=== PATIENT | male | born 1955 | race Caucasian/White ===

== ENCOUNTER 2017-10-02 12:20 | Emergency (ER) | payer OTHER ==
[~2017-10-02] VITALS: Ht 182.9 cm; Wt 122.5 kg
[2017-10-02] MEDS ORDERED: CARISOPRODOL 3350 MG PO (12:40)
[2017-10-02] MEDS ORDERED: DIAZEPAM 5 MG5 M1 PO (12:40)
[2017-10-02] MEDS ORDERED: HYDROCHLOROTHIA25 M2 PO (12:52)
[2017-10-02] MEDS ORDERED: NORCO 5-325 TA1 EACH PO (12:52)
[2017-10-02 13:06] LABS: ABSOLUTE BASOPHILS 0.1 thou/uL (0.0-0.2); ABSOLUTE EOSINOPHILS 0.1 thou/uL (0.0-0.7); ABSOLUTE LYMPHOCYTES 2.1 thou/uL (0.8-5.3); ABSOLUTE MONOCYTES 0.5 thou/uL (0.0-1.2); ABSOLUTE NEUTROPHILS 4.3 thou/uL (1.6-8.1); EOSINOPHILS 1.1 %; HEMOGLOBIN 15.7 gm/dL (14.0-18.0); LYMPHOCYTES 29.3 %; MCH 31.5 pg (26.0-34.0); MCHC 34.9 g/dL (28.0-37.0); MCV 90.3 fL (80.0-100.0); MONOCYTES 7.5 %; MPV 7.5 fl. (7.2-11.1); NUCLEATED RBCS 0 /100WBC; PLATELET COUNT* 220 thou/uL (150-400); POLYS 61.1 %; RBC 4.99 mil/uL (4.50-6.00); RDW-CV 13.6 % (10.5-14.5); WBC 7.1 thou/uL (4.0-11.0)
[2017-10-02 13:13] LABS: ANION GAP 11 mmol/L (7-16); BUN 11 mg/dL (7-18); CALCIUM 8.8 mg/dL (8.5-10.1); CHLORIDE 104 mmol/L (98-107); CO2 24 mmol/L (21-32); CREATININE 0.7 mg/dL (0.6-1.3); GLUCOSE 99 mg/dL (70-99); POTASSIUM 3.8 mmol/L (3.5-5.1); SODIUM 139 mmol/L (136-145)
[2017-10-02 13:21] LABS: ALBUMIN 4.2 g/dL (3.4-5.0); ALKALINE PHOSPHATASE 73 U/L (46-116); SGOT 20 U/L (15-37); SGPT 34 U/L (30-65); TOTAL BILIRUBIN 0.5 mg/dL (<0.1-1.0); TOTAL PROTEIN 7.6 g/dL (6.4-8.2); TROPONIN-I LEVEL <0.06 ng/mL (<0.06)
[2017-10-02 13:23] LABS: URINE BILIRUBIN NEGATIVE (Negative); URINE BLOOD 1+ (Negative); URINE CLARITY CLEAR; URINE COLOR YELLOW; URINE GLUCOSE-RANDOM NEGATIVE (Negative); URINE KETONES NEGATIVE (Negative); URINE LEUKOCYTES-REFLEX NEGATIVE (Negative); URINE NITRITE-REFLEX NEGATIVE (Negative); URINE PROTEIN NEGATIVE (Negative); URINE SPECIFIC GRAVITY <= 1.005 (1.005-1.030); URINE UROBILINOGEN 0.2 E.U./dl (0.2-1.0)
[2017-10-02 13:35] LABS: CASTS None Seen /LPF (None Seen); CRYSTALS None Seen /LPF (None Seen); SQUAMOUS 0-3 Few /LPF (0-3); URINE RBC 0-2 Rare /HPF (0-2)
[2017-10-02 13:36] LABS: BACTERIA-REFLEX None Seen /HPF (None Seen); URINE WBC-REFLEX 0-5 Rare /HPF (0-5)
[2017-10-02 13:50] VITALS: BP 169/90
--- NOTE | 2017-10-03 18:41 | EKG ---
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 : 1955 Requested By: Martine Parada Order Number: [id number] MD: Mickey Bridges Measurements Intervals [place] Rate: 77 P: 65 CT: 169 QRS: -26 QRSD: 111 T: 23 QT: 369 QTc: 418 Interpretive Statements Sinus rhythm Borderline left axis deviation RSR' in V1 or V2, probably normal variant No previous ECG available for comparison Electronically Signed On 10-03-2017 18:40:49 CDT by Mickey Bridges [email or web address] <ELECTRONICALLY SIGNED> By: Mickey Bridges MD, [facility] 10/03/17 1840 1233 1233 Mickey Bridges MD, FACC /EPI
== END 2017-10-02 13:50 | disposition home or self-care (01) ==
LOC: M.ERS 12:20
PROVIDERS: Emergency Medicine Emergency Medical Services
DX: F41.9 Anxiety disorder, unspecified (principal); Z88.5 Allergy status to narcotic agent; Z90.49 Acquired absence of other specified parts of digestive tract

== ENCOUNTER 2017-11-26 05:28 | Inpatient (IN) | payer OTHER ==
[2017-11-26] VITALS (18 sets, daily range): BP systolic 95–159; BP diastolic 4–104
[~2017-11-26] VITALS: Ht 182.9 cm; Wt 129.3 kg
[~2017-11-26 05:28] MED LIST: CARISOPRODOL 3350 MG PO; DIAZEPAM 5 MG5 M1 PO; HYDROCHLOROTHIA25 M2 PO; NORCO 5-325 TA1 EACH PO
--- NOTE | 2017-11-26 05:38 | NUR ---
SEE STEMI DOCUMENTATION FORM
[2017-11-26 05:54] LABS: ABSOLUTE BASOPHILS 0.1 thou/uL (0.0-0.2); ABSOLUTE EOSINOPHILS 0.1 thou/uL (0.0-0.7); ABSOLUTE LYMPHOCYTES 3.3 thou/uL (0.8-5.3); ABSOLUTE MONOCYTES 0.9 thou/uL (0.0-1.2); ABSOLUTE NEUTROPHILS 5.8 thou/uL (1.6-8.1); EOSINOPHILS 0.9 %; HEMATOCRIT 49.6 % (42.0-52.0); HEMOGLOBIN 17.1 gm/dL (14.0-18.0); LYMPHOCYTES 32.2 %; MCH 31.2 pg (26.0-34.0); MCHC 34.5 g/dL (28.0-37.0); MCV 90.5 fL (80.0-100.0); MONOCYTES 8.9 %; MPV 7.6 fl. (7.2-11.1); NUCLEATED RBCS 0 /100WBC; PLATELET COUNT* 285 thou/uL (150-400); RBC 5.48 mil/uL (4.50-6.00); RDW-CV 13.2 % (10.5-14.5); WBC 10.1 thou/uL (4.0-11.0)
[2017-11-26 06:01] LABS: ANION GAP 11 mmol/L (7-16); BUN 14 mg/dL (7-18); CALCIUM 9.4 mg/dL (8.5-10.1); CHLORIDE 102 mmol/L (98-107); CO2 26 mmol/L (21-32); CREATININE 0.9 mg/dL (0.6-1.3); GLUCOSE 138 mg/dL (70-99); POTASSIUM 3.7 mmol/L (3.5-5.1); SODIUM 139 mmol/L (136-145)
[2017-11-26 06:03] LABS: APTT 26.8 Seconds (25.0-31.3)
[2017-11-26 06:07] LABS: ALBUMIN 4.4 g/dL (3.4-5.0); ALKALINE PHOSPHATASE 77 U/L (46-116); SGOT 21 U/L (15-37); SGPT 26 U/L (30-65); TOTAL BILIRUBIN 0.3 mg/dL (<0.1-1.0); TOTAL PROTEIN 7.8 g/dL (6.4-8.2)
[2017-11-26 06:10] LABS: TROPONIN-I LEVEL 1.21 ng/mL (<0.06)
[2017-11-26 06:22] LABS: CHOLESTEROL 280 mg/dL (<200); HDL CHOLESTEROL 34 mg/dL (>40); SERUM ASSESSMENT Clear; TC:HDL 8.2 Ratio (Not establshd); TRIGLYCERIDE 451 mg/dL (<150); VLDL 90 mg/dL (<40)
--- NOTE | 2017-11-26 09:17 | NUR ---
0750 ADMITTED TO ICU PER BED FROM REGISTERED NURSE AMBULATORY. SEE ADMISSION ASSESSMENT AND POST CATH CHARTING. RIGHT GROIN ANGIOSEAL INTACT. ATRIAL FIB ON MONITOR. EKG ORDERED. CARDIZEM GTT AT 15 MG/HR
[2017-11-26 10:33] LABS: CK-MB MASS 134.5 ng/mL (<0.5-3.6)
[2017-11-26 10:38] LABS: TROPONIN-I LEVEL 11.15 ng/mL (<0.06)
--- NOTE | 2017-11-26 11:20 | NUR ---
DR MCCLAIN TO SEE PATIENT.
--- NOTE | 2017-11-26 12:24 | NUR ---
1200 PATIENT NOW OFF OF BEDREST. HOB UP AND LUNCH ORDERED
--- NOTE | 2017-11-26 13:37 | EKG ---
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 : 1955 Requested By: Dalton Hernadez Order Number: [id number] MD: Home Choudhury Measurements Intervals [place] Rate: 163 P: 265 CT: 81 QRS: 19 QRSD: 88 T: 85 QT: 272 QTc: 448 Interpretive Statements atrial fibrillation Inferior infarct, acute (RCA) Lateral leads are also involved Probable RV involvement, suggest recording right precordial leads Compared to ECG 10/02/2017 12:33:40 Myocardial infarct finding now present Sinus rhythm no longer present Electronically Signed On 11-26-2017 13:37:28 CDT by Home Choudhury [email or web address] <ELECTRONICALLY SIGNED> By: Home Choudhury MD, [facility] 11/26/17 1337 0530 0530 Home Choudhury MD, [facility] /EPI
--- NOTE | 2017-11-26 13:38 | EKG ---
[place] [address] ELECTROCARDIOGRAM REPORT Name: BALWINDER RAY Room: [address] ADM IN .R.#: [id number] Admission: 11/26/17 Attend Phys: Home Choudhury MD, F Discharge: Date of : 55 Report #: [id number] THIS REPORT FOR: //name// 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 : 1955 Requested By: Dalton Hernadez Order Number: [id number] MD: Home Choudhury Measurements Intervals [place] Rate: 117 P: PA: QRS: 13 QRSD: 93 T: 62 QT: 311 QTc: 434 Interpretive Statements Atrial fibrillation Inferoposterior infarct, acute (RCA) Lateral infarct, acute Probable RV involvement, suggest recording right precordial leads Electronically Signed On 11-26-2017 13:38:14 CDT by Home Choudhury [email or web address] <ELECTRONICALLY SIGNED> By: Home Choudhury MD, [facility] 11/26/17 1338 0 0 Home Choudhury MD, [facility] /EPI
--- NOTE | 2017-11-26 13:40 | EKG ---
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
--- NOTE | 2017-11-26 16:21 | NUR ---
1500 CONVERTED TO SINUS RL WITH [facility] PAC. CARDIZEM DRIP OFF. SEE EKG. PAGE TO DR MCCLAIN
--- NOTE | 2017-11-26 16:28 | NUR ---
1530 LUCIANO CATHETER REMOVED.
--- NOTE | 2017-11-26 17:46 | NUR ---
PATIENT PROGRESSING TOWARDS GOALS. TO ICU POST CATH FOR PCI. SEE GROIN SITE CHARTING. OFF OF BEDREST AT NOON. NOW UP IN CHAIR. LUCIANO CATHETER REMOVED. CONVERTED FROM A FIB TO SINUS RL AT 1500. DENIES CHEST PAIN. SOA RESOLVED. MULTIPLE VISITORS
[2017-11-27] VITALS (16 sets, daily range): BP systolic 89–149; BP diastolic 30–84
[2017-11-27 04:49] LABS: HEMATOCRIT 38.8 % (42.0-52.0); MCHC 35.1 g/dL (28.0-37.0); MCV 91.1 fL (80.0-100.0); MPV 8.2 fl. (7.2-11.1); RBC 4.26 mil/uL (4.50-6.00); RDW-CV 13.3 % (10.5-14.5); WBC 10.4 thou/uL (4.0-11.0)
[2017-11-27 05:22] LABS: ALBUMIN 3.5 g/dL (3.4-5.0); CALCIUM 8.2 mg/dL (8.5-10.1); CK-MB MASS 225.2 ng/mL (<0.5-3.6); CREATININE 0.9 mg/dL (0.6-1.3); HEMOGLOBIN 13.6 gm/dL (14.0-18.0); POTASSIUM 3.4 mmol/L (3.5-5.1); TOTAL BILIRUBIN 0.8 mg/dL (<0.1-1.0); TOTAL PROTEIN 6.2 g/dL (6.4-8.2)
[2017-11-27 05:54] LABS: TROPONIN-I LEVEL 33.81 ng/mL (<0.06)
--- NOTE | 2017-11-27 07:39 | NUR ---
THIS RN RESUMED CARE OF PT THIS AM. PT VSS. EKG THIS AM NSR. DENIES PAIN. GOALS FOR TODAY INCLUDE DOWNGRADING TO MEDICAL, INCREASING ACTIVITY LEVEL.
[2017-11-27 10:15] LABS: CK-MB MASS 172.1 ng/mL (<0.5-3.6)
[2017-11-27 10:40] LABS: TROPONIN-I LEVEL 24.29 ng/mL (<0.06)
--- NOTE | 2017-11-27 11:38 | NUR ---
PT moving towards goals, downgraded to telemetry. Pt tx to 200. Family at bedside. Belongings sent with patient. Denies concernx/questions at this time.
--- NOTE | 2017-11-27 12:29 | EKG ---
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: : 1955 Requested By: Home Choudhury Order Number: [id number] Alba MD: Home Choudhury Measurements Intervals [place] Rate: 54 P: 23 ND: 179 QRS: -39 QRSD: 109 T: 7 QT: 424 QTc: 402 Interpretive Statements Sinus bradycardia with ventricular escape beat Abnormal R-wave progression, early transition Inferior infarct, old Compared to ECG 11/26/2017 08:14:56 Atrial fibrillation no longer present Myocardial infarct finding still present Electronically Signed On 11-27-2017 12:29:04 CDT by Home Choudhury [email or web address] <ELECTRONICALLY SIGNED> By: Home Choudhury MD, [facility] 11/27/17 1229 1514 1514 Home Choudhury MD, [facility] /EPI
--- NOTE | 2017-11-27 12:39 | EKG ---
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: VIET : 1955 Requested By: Home Choudhury Order Number: [id number] Alba MD: Home Choudhury Measurements Intervals [place] Rate: 63 P: 57 VT: 188 QRS: -37 QRSD: 111 T: 22 QT: 411 QTc: 421 Interpretive Statements Sinus rhythm RSR' in V1 or V2, right VCD or RVH Inferior infarct, old Compared to ECG 11/26/2017 08:14:56 rate increased RSR' in V1 or V2 now present Myocardial infarct finding still present Electronically Signed On 11-27-2017 12:39:24 CDT by Home Choudhury [email or web address] <ELECTRONICALLY SIGNED> By: Home Choudhury MD, [facility] 11/27/17 1239 0733 0733 Home Choudhury MD, [facility] /EPI
--- NOTE | 2017-11-27 13:19 | CARD ---
[address] [address] CARDIAC CATH REPORT Name: BALWINDER RAY Daniella Room: [facility] IN .R.#: [id number] Admission: 11/26/17 Attend Phys: Home Choudhury MD, F Discharge: Date of : 55 Report #: [id number] THIS REPORT FOR: //name// APPROVED REPORT Study performed: 11/26/2017 05:47:59 Patient Details Patient Status: ED Room #: The patient is a 62 year-old male Event Personnel Thais Huerta, Rosalina Noble RN RN, Jeanne Hummel, Home Choudhury Business Machines Teacher Procedures Performed Left Heart Cath w/or w/o Coronaries [id number] [facility] BMS Revasc AMI Total/Sub Single RCA [id number] BMREVAMISG , Aortogram, dc cardioversion Indication Arrhythmia, STEMI (>0 to less than or equal to 6 hours), Chest pain Risk Factors Hypercholesterolemia, Hypertension Admission/Lab Medications/Medications given during procedure Glycoprotein IllbIlla Inhibitors, Heparin Unfract. Procedure Narrative The patient was brought emergently to the Cardiac Catheterization Laboratory and was prepped and draped in a sterile manner. The right femoral was infiltrated with 1% Lidocaine subcutaneous anesthesia. A Slender Glidesheath sheath was inserted into the right femoral artery. Coronary angiography was performed using coronary diagnostic catheters. The right coronary system was accessed and visualized with a Diagnostic catheter. The left coronary system was accessed and visualized with a Diagnostic catheter. The left ventricle was accessed and visualized with a Diagnostic catheter. Left ventricular/Aortic Valve gradient assessed via catheter pullback. Left ventriculogram was performed in FONSECA projection. Closure device was deployed with a 6 Fr Slender Glidesheath. The patient tolerated the procedure well and there [place] [address] CARDIAC CATH REPORT Name: BALWINDER RAY Room: [address] IN [facility]#: [id number] Admission: 11/26/17 Attend Phys: Home Choudhury MD, F Discharge: Date of : 55 Report #: [id number] the procedure. There was no hematoma. After moderate sedation, DC cardioversion of atrial fibrillation was attempted with 50 J but was unsuccessful Intraoperative Conscious Sedation Sedation start time: 635 Case end Time: 723 Fentanyl 100 mcg Versed 10 mg Dose: 1242 mGy Contrast Type and Amount: Visipaque 120 ml Coronary Angiography The patient's coronary anatomy is right dominant. Diagnostic Cath Left Main 0% stenosis LAD 70% proximal stenosis Diagonal 1 50% ostial stenosis Circumflex 0% stenosis Right Coronary 90% proximal stenosis with clot 30% mid stenosis noted Ramus 0% stenosis Left Ventriculography The left ventricular ejection fraction is estimated to be 50-55%. Left ventricular wall motion abnormalities are present. There is no mitral insufficiency. mild inferior wall hypokinesis noted Hemodynamics The aortic pressure is 112/73 mmHg with a mean of 92 mmHg. The left ventricular pressure is 110/20 mmHg with a mean of mmHg. The left ventricular end diastolic pressure is 20 mmHg. Pullback from the left ventricle to the aorta revealed no gradient across the aortic valve. Pullback from the left ventricle to the aorta revealed a mm gradient across the aortic valve. PCI Technique Lesion Anticoagulation was achieved with Heparin. bolus of IV aggrastat given Percutaneous coronary intervention was performed on the proximal right coronary artery. The lesion stenosis prior to intervention was 90% with DALLAS 2 flow. A 6FR JCR 4 100CM Guide Catheter was used to engage the rca ostium. A IG: BMW 190cm Interventional Guidewire [place] [address] CARDIAC CATH REPORT Name: BALWINDER RAY Room: [address] IN [facility]#: [id number] Admission: 11/26/17 Attend Phys: Home Choudhury MD, F Discharge: Date of : 55 Report #: [id number] BALLOON DILATION A Balloon catheter Trek RX 2.5 X 8 was inserted and inflated up to 18.00atm for 15seconds. Repeat angiography revealed the following post-dilatation results: 50% stenosis. STENT DEPLOYMENT A bare metal stent Ultra RX 4.5 X 18 was inserted and inflated up to 16.00atm for 26seconds. Repeat angiography revealed the following post-stent deployment results: 0% stenosis. Additional Inflation: 18.00atm for 13seconds. Additional Inflation: 20.00atm for 14seconds. Final angiography reveals 0 % stenosis with DALLAS 3 flow. Conclusion 1. 70% proximal stenosis of the lad 2. 90% proximal stenosis of the rca with clot 3. successful placement of a single bare metal stent in the proximal rca 4. unsuccessful cardioversion of atrial fibrillation Recommendations future stenting of the lad Medications Administered Ticagrelor <ELECTRONICALLY SIGNED> By: Home Choudhury MD, [facility] 11/27/17 1319 1319 1319Home Choudhury MD, FAC /INF
--- NOTE | 2017-11-27 13:30 | H ---
[address] [address] HISTORY AND PHYSICAL Name: BALWINDER RAY Room: [address] IN .R.#: [id number] Admission: 11/26/17 Attend Phys: Home Choudhury MD, F Discharge: Date of : 55 Report #: [id number] THIS REPORT FOR: //name// CC: Murtaza Brown DATE OF SERVICE: 11/26/2017 TYPE OF REPORT: Cardiology history and physical. HISTORY OF PRESENT ILLNESS: The patient is a 62-year-old white male who came into the Emergency Room complaining of chest pain. The patient has no previous history of heart disease. He is not very active at this time. He does have a history of anxiety and takes Valium. He actually came to the Emergency Room a couple of months ago with an anxiety attack. He states that the past couple of days he had not felt well. He has had episodes of diaphoresis. He went to bed last night about midnight. He woke up about 1:00 in the morning and felt his heart fluttering. He also felt a tightness in his chest, went into his jaw. He became diaphoretic and short of breath. This persisted. He finally had his bring him to the Emergency Room about 5:00 a.m. When he arrived here, he was noted to be in tachycardia with inferior ST-segment elevation. A code STEMI was activated. I was asked to see him on an emergent basis. On my arrival, the patient continued to have chest pain. In the Emergency Room, the patient was given adenosine on 2 separate occasions and started on IV Cardizem and heparin. PAST MEDICAL HISTORY: Significant for 3 knee surgeries, back surgeries and appendectomy. He has had surgery on his hand. He has a history of hypertension and anxiety disorder. MEDICATIONS: Include hydrochlorothiazide, Soma, hydrocodone and Valium. ALLERGIES: He has no known drug allergies. FAMILY HISTORY: Negative for heart disease. 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 He lives in [place], [place] with his . No smoking. Rarely drinks alcohol. Drinks caffeine occasionally. No illicit drug use. REVIEW OF SYSTEMS: He denies snoring at night. No history of stroke, asthma, peptic ulcer disease, liver disease, kidney disease or cancer. He is 6 feet tall and weighs 270 pounds. PHYSICAL EXAMINATION: [place] [address] HISTORY AND PHYSICAL Name: BALWINDER RAY Room: [address]#: [id number] Admission: 11/26/17 Attend Phys: Home Choudhury MD, F Discharge: Date of : 55 Report #: [id number] GENERAL: Revealed a middle-aged male, appeared in moderate distress secondary to chest pain. VITAL SIGNS: He had a blood pressure of 130/70, his pulse was 120 and irregular and respirations nonlabored. HEENT: He is anicteric. Conjunctivae pink. Mucous members moist. NECK: Veins do not appear distended. No carotid bruits heard. CHEST: Clear to auscultation. CARDIOVASCULAR: Irregular tachycardia. No significant murmur. ABDOMEN: Soft. EXTREMITIES: Had no edema. Posterior tibial pulse 2+ bilaterally. SKIN: Moist and warm. NEUROLOGICAL: Nonfocal. PSYCHIATRIC: Mood, he appeared somewhat anxious. DIAGNOSTIC DATA: His ECG on arrival showed a regular tachycardia at 160 beats per minute, suggestive of atrial flutter with inferior ST-segment elevation noted. Followup ECG appears to show atrial fibrillation. LABORATORY DATA: Sodium 139, potassium 3.7, creatinine 0.9 and glucose 138. Liver function studies were normal. Troponin 1.2. Cholesterol 280, triglyceride 451 and HDL 34. His white blood cell count 10.1 and hemoglobin 17.1. IMPRESSION AND RECOMMENDATIONS: 1. Acute inferior ST-segment elevation myocardial infarction. Recommend cardiac catheterization. 2. Atrial fibrillation. I will consider cardioversion. 3. Hypertension. The patient is on a diuretic. 4. Dyslipidemia. Recommend a statin drug. 5. Glucose intolerance. 6. Obesity. 7. Anxiety disorder. <ELECTRONICALLY SIGNED> By: Home Choudhury MD, [facility] 11/27/17 1330 0752 0938Datommy Choudhury MD, FACC /nt
--- NOTE | 2017-11-27 13:51 | NUR ---
PT TRANSFERED TO ROOM 200 AT APPROX 1115 THIS RN REVIWED AND AGREES WITH THE ASSESMENT OF KARIE HOLLOWAY.
--- NOTE | 2017-11-27 17:45 | NUR ---
PT PROGRESSING TOWARD GOALS, STILL C/O SOME PAIN, GENERALIZED AND RIGHT GROIN. PAIN MEDS GIVEN PER MAR. PT GIVEN EDUCATION ON HEART HEALTHY DIET. AT BEDSIDE. CALLS APPROPRIALTY FOR NEEDS. WILL CONTINUE TO MONITOR.
[2017-11-27 19:07] LABS: GLYCOHEMOGLOBIN (HGB A1C) 5.3 % (4.8-5.6)
[2017-11-28] VITALS: BP 133/55
[2017-11-28 04:00] VITALS: BP 145/83
--- NOTE | 2017-11-28 04:27 | NUR ---
ASSUMED CARE OF PT AFTER REPORT AT 1930. PT A&OX4. VSS. PHYSICAL ASSESSMENT COMPLETED AND CHARTED. PT ON O2 VIA NC AT 2L WITH 99% O2 SAT. PT TRACING SR ON TELE. PT UP ADLIB TO TOILET. POST CATH SITE TO RIGHT GROIN CLEAN, DRY & INTACT WITH MINOR BRUISING.SITE SOFT. PULSES ADEQUATE BILATERAL. PT COMPLAINED OF BACK, KNEE & GROIN PAIN WITH PAIN SCALE OF 8/10-PAIN MEDS GIVEN PER MAR WITH PARTIAL RELIEF. PT RESTED WELL ON BED. HOURLY ROUNDING OBSERVED. HS REST & SAFETY GOALS ACHIEVED.CALL LIGHT WITHIN REACH.
[2017-11-28 07:45] VITALS: BP 137/81
--- NOTE | 2017-11-28 09:30 | NUR ---
ASSUMED PT CARE AT 0730, FULL ASSESMENT DONE CHARTED. PT A/O X4, C/O SOME GENERALIZED PAIN AND RIGHT GROIN PAIN. PT GIVEN PAIN MEDS PER JUN. DR SARAHI JUAN WITH DC TODAY IN THE AFTERNOON. PTS VSS, SB ON THE MONITOR. WILL CONTINUE WITH PLAN OF CARE.
[2017-11-28 09:36] VITALS: BP 137/81
[2017-11-28 09:56] LABS: CK-MB MASS 18.3 ng/mL (<0.5-3.6)
[2017-11-28 10:22] LABS: TROPONIN-I LEVEL 9.62 ng/mL (<0.06)
[2017-11-28 10:45] VITALS: BP 137/81
[2017-11-28] MEDS ORDERED: LIPITOR80 MG PO (10:59)
[2017-11-28] MEDS ORDERED: NITROGLYCERIN0.4 MG SUBLING (10:59)
[2017-11-28] MEDS ORDERED: SOTALOL80 MG PO (11:00)
[2017-11-28] MEDS ORDERED: BRILINTA90 MG PO (11:01)
[2017-11-28 11:42] VITALS: BP 145/76
[2017-11-28] MEDS ORDERED: ASPIR 8181 M1 PO (12:30)
[2017-11-28] MEDS ORDERED: ACETAMINOPHEN650 M5 PO (12:34)
[2017-11-28] MEDS ORDERED: NORCO 10-325 T1 EACH PO (12:35)
--- NOTE | 2017-11-28 15:29 | EKG ---
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: : 1955 Requested By: Home Choudhury Order Number: [id number] Reading MD: Home Choudhury Measurements Intervals [place] Rate: 73 P: 69 NV: 195 QRS: -40 QRSD: 113 T: -30 QT: 369 QTc: 407 Interpretive Statements Sinus rhythm Borderline IVCD with LAD Inferoposterior infarct, age indeterminate Compared to ECG 11/27/2017 07:33:58 Myocardial infarct finding still present Electronically Signed On 11-28-2017 15:28:48 CDT by Home Choudhury [email or web address] <ELECTRONICALLY SIGNED> By: Home Choudhury MD, [facility] 11/28/17 1528 0849 0849 Home Choudhury MD, [facility] /EPI
--- NOTE | 2017-11-29 11:15 | D ---
[address] [address] DISCHARGE SUMMARY Name: BALWINDER RAY Daniella Room: [address] IN .R.#: [id number] Admission: 11/26/17 Attend Phys: Home Choudhury MD, F Discharge: 11/28/17 Date of : 55 Report #: [id number] THIS REPORT FOR: //name// CC: Murtaza Brown DATE OF SERVICE: 11/28/2017 DISCHARGE DIAGNOSES: 1. Acute inferior ST segment elevation myocardial infarction. 2. Coronary artery disease. 3. Hypertension. 4. Degenerative joint disease. 5. Atrial fibrillation. 6. Hyperlipidemia. CONSULTANTS: None. PROCEDURES: Left heart catheterization with placement of a single bare metal stent in the right coronary artery via the femoral approach. HISTORY OF PRESENT ILLNESS: The patient is a 62-year-old white male who came to the Emergency Room complaining of chest pain. The patient had no previous history of heart disease. On the day of admission, he awakened at 1:00 in the morning with a flutter in his chest, felt tight. He became diaphoretic and short of breath. It persisted. He finally had his bring him to the Emergency Room at approximately 5:00 in the morning. ECG showed rapid atrial fibrillation. There was also inferior ST segment elevation. A code STEMI was activated. I was asked to see him on an emergent basis. When I arrived, he continued to have chest pain. PAST MEDICAL HISTORY: Significant for 3 knee surgeries, back surgery, appendectomy, hypertension. MEDICATIONS: Include hydrochlorothiazide, Soma, hydrocodone and Valium. ALLERGIES: He had no known drug allergies. PHYSICAL EXAMINATION: VITAL SIGNS: Blood pressure 130/70, pulse is 120 and irregular. CHEST: Clear to auscultation. CARDIAC: Irregular rhythm. ABDOMEN: Soft. EXTREMITIES: [place] [address] DISCHARGE SUMMARY Name: BALWINDER RAY Room: [address]#: [id number] Admission: 11/26/17 Attend Phys: Home Choudhury MD, F Discharge: 11/28/17 Date of : 55 Report #: [id number] DIAGNOSTIC DATA: ECG showed atrial fibrillation, inferior ST segment elevation. LABORATORY WORK: Sodium 139, potassium 3.7, creatinine 0.9, glucose 138. Liver function studies were normal. Troponin 1.2. Cholesterol 280, triglyceride 451, HDL 34. White blood cell count 10.1, hemoglobin 17.1. HOSPITAL COURSE: The patient was taken urgently to the cardiac catheterization lab. I performed an emergent cardiac catheterization from the right femoral artery. There was a 90% stenosis of the proximal right coronary artery with a clot noted. I performed emergent angioplasty and placed a single long large diameter bare metal stent in the right coronary artery with a good result. He was given heparin and Aggrastat. He was loaded with Brilinta. There was also noted to be a 70% stenosis in proximal LAD just prior to the diagonal branch. Ejection fraction was 50% with inferior wall hypokinesis. After moderate sedation was given, he was then cardioverted with 50 joules with persisted in atrial fibrillation. He was started on sotalol and continued on IV diltiazem. Fortunately, he had no further chest pain or heart failure. The atrial fibrillation persisted for several hours, but he eventually converted to sinus rhythm later the first day. Prior to discharge, the patient was ambulating, had no further complaints. An Angio-Seal was placed in the right femoral artery and there was no hematoma noted. At time of discharge, the patient denied any complaints. His vital signs at time of discharge, he had a blood pressure 130/80, pulse is 60. He was afebrile. Follow up ECG showed a sinus rhythm with evidence of previous inferior infarction and incomplete right bundle branch block, but no QT prolongation. Additional lab work during his hospitalization included a fasting blood sugar of 112, SGOT increased to 172. His peak troponin was 33.8. TSH is 1.8, T4 5.8. Glycosylated hemoglobin 5.3. Followup hemoglobin was 13.6 and there was no drop in platelet count. He did have a chest x-ray that showed normal heart size and clear lung gutierrez. DISCHARGE MEDICATIONS: The patient was discharged on the following medications: Aspirin 81 mg a day, Lipitor 80 mg a day. He was to continue his Soma tablets. He was taken off of hydrochlorothiazide. He was started on sotalol 80 mg twice a day, Brilinta 90 mg twice a day. He was to continue his Valium as needed and hydrocodone. He was given nitroglycerin to take as needed for chest pain. DISCHARGE INSTRUCTIONS: I recommended he not perform any stressful activity for the next week. He was to gradually increase his activity. He is scheduled to return to [facility] as an outpatient on Tuesday12/02/2017 and I plan on placing a stent in the LAD from the left femoral artery since this is a bifurcation lesion. He was discharged to follow up with Dr. Mayorga for routine medical care. I plan on seeing him in 5 days for stenting of his LAD. He eventually will see me in the Cardiology Clinic. I did recommend he maintain a heart-healthy diet including low sodium. He was to contact my office for any recurrent chest pain, palpitations or bleeding. If tolerated by his blood pressure, I would consider an LEAH inhibitor in the future because of his vascular disease. The patient [facility] [address] [place] [address] DISCHARGE SUMMARY Name: BALWINDER RAY Room: [address] IN M.R.#: [id number] Admission: 11/26/17 Attend Phys: Home Choudhury MD, F Discharge: 11/28/17 Date of : 55 Report #: [id number] does appear to have metabolic syndrome and I did suggest calorie restrictions in an effort to lose weight. If triglycerides remain greater than 300, I would consider adding fenofibrate. <ELECTRONICALLY SIGNED> By: Home Choudhury MD, [facility] 11/29/17 1115 0834 [id number] Choudhury MD, [facility] /nt
== END 2017-11-28 13:20 | disposition home or self-care (01) | DRG 249 ==
LOC: M.ERS 05:28 → M.ICU 06:14 → M.TBA-CV 06:14 → M.2W 06:14 → M.ICU 07:39 → M.2W 11-27 11:10
PROVIDERS: Emergency Medicine Emergency Medical Services; ADMIT Internal Medicine Cardiovascular Disease
PROC: 02703DZ Dilation of Coronary Artery, One Artery with Intraluminal Device, Percutaneous Approach (ICD-10-PCS; principal; 2017-11-26)
PROC: B211YZZ Fluoroscopy of Multiple Coronary Arteries using Other Contrast (ICD-10-PCS; principal; 2017-11-26)
PROC: 4A023N7 Measurement of Cardiac Sampling and Pressure, Left Heart, Percutaneous Approach (ICD-10-PCS; principal; 2017-11-26)
PROC: B215YZZ Fluoroscopy of Left Heart using Other Contrast (ICD-10-PCS; principal; 2017-11-26)
DX: I21.19 ST elevation (STEMI) myocardial infarction involving other coronary artery of inferior wall (principal); I25.10 Atherosclerotic heart disease of native coronary artery without angina pectoris; I10 Essential (primary) hypertension; M19.90 Unspecified osteoarthritis, unspecified site; I48.91 Unspecified atrial fibrillation; F41.9 Anxiety disorder, unspecified; E78.5 Hyperlipidemia, unspecified; E66.9 Obesity, unspecified; E74.39 Other disorders of intestinal carbohydrate absorption; Z88.6 Allergy status to analgesic agent; Z90.49 Acquired absence of other specified parts of digestive tract; Z68.38 Body mass index [BMI] 38.0-38.9, adult; Z79.899 Other long term (current) drug therapy

== ENCOUNTER 2017-12-01 11:11 | Inpatient (IN) | payer OTHER ==
[~2017-12-01] VITALS: Ht 182.9 cm; Wt 123.4 kg
--- NOTE | ~2017-12-01 | H ---
[address] [address] HISTORY AND PHYSICAL Name: BALWINDER RAY Room: [address] IN .R.#: [id number] Admission: 12/01/17 Attend Phys: Home Choudhury MD, F Discharge: 12/03/17 Date of : 55 Report #: [id number] THIS REPORT FOR: //name// For History and Physical please refer to the electronic consultation note in the patient's medical record. By: [id number] Records Staff RAUL /FARNAZ
[~2017-12-01 11:11] MED LIST changes: +ACETAMINOPHEN650 M5 PO; +ASPIR 8181 M1 PO; +BRILINTA90 MG PO; +LIPITOR80 MG PO; +NITROGLYCERIN0.4 MG SUBLING; +NORCO 10-325 T1 EACH PO; +SOTALOL80 MG PO
[2017-12-01 11:15] VITALS: BP 172/101
[2017-12-01 11:27] LABS: ABSOLUTE BASOPHILS 0.1 thou/uL (0.0-0.2); ABSOLUTE EOSINOPHILS 0.1 thou/uL (0.0-0.7); ABSOLUTE LYMPHOCYTES 1.9 thou/uL (0.8-5.3); ABSOLUTE MONOCYTES 0.9 thou/uL (0.0-1.2); ABSOLUTE NEUTROPHILS 6.3 thou/uL (1.6-8.1); HEMATOCRIT 45.1 % (42.0-52.0); HEMOGLOBIN 15.7 gm/dL (14.0-18.0); LYMPHOCYTES 20.1 %; MCH 31.7 pg (26.0-34.0); MCHC 34.8 g/dL (28.0-37.0); MONOCYTES 9.7 %; MPV 7.8 fl. (7.2-11.1); NUCLEATED RBCS 0 /100WBC; PLATELET COUNT* 241 thou/uL (150-400); POLYS 68.2 %; RBC 4.95 mil/uL (4.50-6.00); RDW-CV 13.1 % (10.5-14.5); WBC 9.3 thou/uL (4.0-11.0)
[2017-12-01 11:36] LABS: CALCIUM 8.9 mg/dL (8.5-10.1); CREATININE 0.9 mg/dL (0.6-1.3)
[2017-12-01 11:40] LABS: APTT 28.4 Seconds (25.0-31.3); INR 1.1; PROTIME 10.6 Seconds (9.20-11.50)
[2017-12-01 11:54] LABS: ALBUMIN 3.8 g/dL (3.4-5.0); CK-MB MASS 1.3 ng/mL (<0.5-3.6); MAGNESIUM 1.8 mg/dL (1.8-2.4); TOTAL BILIRUBIN 0.8 mg/dL (<0.1-1.0); TOTAL PROTEIN 8.1 g/dL (6.4-8.2)
[2017-12-01 11:59] LABS: TROPONIN-I LEVEL 1.49 ng/mL (<0.06)
[2017-12-01 13:42] VITALS: BP 126/79
[2017-12-01 14:11] VITALS: BP 132/88
--- NOTE | 2017-12-01 15:06 | EKG ---
[place] [address] ELECTROCARDIOGRAM REPORT Name: BALWINDER RAY Room: [address] ADM IN .R.#: [id number] Admission: 12/01/17 Attend Phys: Home Choudhury MD, F Discharge: Date of : 55 Report #: [id number] THIS REPORT FOR: //name// [facility] ED Test Date: 2017-12-01 Test Time: 11:15:45 Pat Name: BALWINDER ARY Department: Room: [facility] Gender: M Shade Bander: MS : 1955 Requested By: Rancho Younger Order Number: [id number] MD: Raj White Measurements Intervals [place] Rate: 75 P: 72 UT: 194 QRS: -40 QRSD: 113 T: 11 QT: 384 QTc: 429 Interpretive Statements Sinus rhythm Possible left atrial enlargement RSR' in V1 or V2, right VCD or RVH Inferior infarct, old Compared to ECG 11/28/2017 08:49:52 Right ventricular hypertrophy now present RSR' in V1 or V2 now present Myocardial infarct finding still present Electronically Signed On 12-01-2017 15:06:33 CDT by Raj White [email or web address] <ELECTRONICALLY SIGNED> By: Raj White MD, FACC 12/01/17 1506 1115 1115 Raj White MD, FAC /EPI
--- NOTE | 2017-12-01 15:28 | NUR ---
PT ADMITED TO TELEMETRY UNDER THE CARE OF DR MCCLAIN. ASSESSMENT COMPLETED AND DOCUMENTED. VSS NUSARIKAING WILL CONTINUE TO MONITOR.
[2017-12-01 15:43] VITALS: BP 129/62
--- NOTE | 2017-12-01 18:03 | NUR ---
PT REMAINS A&O X4 CALM AND COOPERATIVE. TRACING SR ON THE MONITOR AND VSS. PT ATE 90% OF HIS DINNER. AND HAS BEEN UP AD MONIK IN HIS ROOM. PT HAS A STEADY GAIT AND CURRNTLY HAS NO C/O PAIN OR DISTRESS. PT SCHEDULED FOR A CARDIAC CATH IN THE MORNING, WILL MAKE NPO AT SC. NURSING WILL CONTINNUE TO ROUND HOURLY FOR COMFORT AND SAFTEY.
[2017-12-01 20:40] VITALS: BP 146/78
[2017-12-01] MEDS ORDERED: NORCO 7.5-3251 EACH PO (21:41)
[2017-12-01 23:40] VITALS: BP 104/64
[2017-12-02] VITALS (14 sets, daily range): BP systolic 108–145; BP diastolic 65–84
--- NOTE | 2017-12-02 06:50 | NUR ---
PT IS ABLE TO COMMUNICATE HIS NEEDS TO STAFF EFFECTIVELY. CURRENT PAIN MEDICATION REGIMEN HAS BEEN ADEQUATE FOR CONTROLLING HIS PAIN UP TO THIS TIME. HE HAS BEEN NPO, EXCEPT FOR MEDS WITH SIPS OF WATER, SINCE MIDNIGHT FOR A CARDIAC CATH LATER TODAY.
--- NOTE | 2017-12-02 10:09 | NUR ---
ASSUMED CARE OF PT AT 0730 PT REMAINS A&O X4 CALM AND COOPERATIVE. VSS TRACING SB ON THE MONITOR. PT LEFT THE FLOOR AT 0855 FOR THE PROGRAM PROFESSIONAL.
--- NOTE | 2017-12-02 11:24 | NUR ---
PT RETURNED FROM POLICY INTERN AT AROUND 1100. PT A&O X4 BUT DOES C/O BACK PAIN. PRN PAIN MEDS ADMINISTERED PER MAR. LEFT GROIN IS SOFT WITH NO SIGNS OF BLEEDING OR HEMATOMA, DRESSING HAS A SMALL AMOUBNT OF DRY BLOOD AROUND THE EDGES. VSS AND TRACING SB ON THE MONITOR. WILL CONTINUE TO MONIRTOR CLOSELY.
--- NOTE | 2017-12-02 13:30 | NUR ---
MET WITH PT TO DISCUSS HOME SITUATION/DC PLANNING. PT LIVES WITH , IS INDEPENDENT AND ACTIVE. USES NO EQUIPMENT. HE STATED THAT THIS HAS BEEN AN EXPERIENCE AND HE PLANS TO MAKE LIFE CHANGES. SUPPORT GIVEN. NO DC NEEDS ID'D. WILL FOLLOW
--- NOTE | 2017-12-02 15:17 | EKG ---
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: : 1955 Requested By: Home Choudhury Order Number: [id number] Alba MD: Home Choudhury Measurements Intervals [place] Rate: 55 P: 39 WA: 186 QRS: -37 QRSD: 110 T: 1 QT: 414 QTc: 396 Interpretive Statements Sinus bradycardia Abnormal R-wave progression, early transition Inferior infarct, old Compared to ECG 12/01/2017 11:15:45 Myocardial infarct finding still present Electronically Signed On 12-02-2017 15:17:16 CDT by Home Choudhury [email or web address] <ELECTRONICALLY SIGNED> By: Home Choudhury MD, [facility] 12/02/17 1517 1147 1147 Home Choudhury MD, [facility] /EPI
--- NOTE | 2017-12-02 16:14 | CARD ---
[address] [address] CARDIAC CATH REPORT Name: BALWINDER RAY Daniella Room: [address] IN .R.#: [id number] Admission: 12/01/17 Attend Phys: Home Choudhury MD, F Discharge: Date of : 55 Report #: [id number] THIS REPORT FOR: //name// APPROVED REPORT Study performed: 12/02/2017 08:38:07 Patient Details Patient Status: Out-Patient Room #: 221 The patient is a 62 year-old male Event Personnel Home Choudhury Electrotyper, Tereza Florez RN Nursing Unit Clerk, Maryse Huerta RTR Monitor, Althea Rosado RTR Scrub Procedures Performed Art Access - L femoral artery* Left Heart Cath w/or w/o Coronaries C [address]OM[address] Place w/wo Plasty Single LAD PTCA Single Vessel DIAG PCISINGLE Indication Chest pain Risk Factors Arterial Hypertension, Hypercholesterolemia Previous Procedures/Diagnoses Previous PCI, Previous AR Admission/Lab Medications/Medications given during procedure Heparin Unfract. Procedure Narrative The patient was brought electively to the Cardiac Catheterization Laboratory and was prepped and draped in a sterile manner. The left femoral was infiltrated with 2% Lidocaine subcutaneous anesthesia. A 7Fr X 11cm Sheath sheath was inserted into the left femoral artery. Coronary angiography was performed using coronary diagnostic catheters. The right coronary system was accessed and visualized with a Diagnostic JR 4 catheter. The left coronary system was accessed and visualized with a 7FR XBLAD 4.0 Guide catheter. Left ventricular/Aortic Valve gradient assessed via catheter pullback. Closure device was deployed with a 8 Fr 8Fr Angioseal. The patient tolerated the procedure well and there were no complications associated with the procedure. There [place] [address] CARDIAC CATH REPORT Name: BALWINDER RAY Daniella Room: [address] IN [facility]#: [id number] Admission: 12/01/17 Attend Phys: Home Choudhury MD, F Discharge: Date of : 55 Report #: [id number] Intraoperative Conscious Sedation Sedation start time: 9:35 Case end Time: 10:30 Fentanyl 50 mcg Versed 2 mg Fluoro Time: 7.6 minutes Dose: DAP 27870 cGycm2 144 mGy Contrast Type and Amount: Omnipaque 180 ml Coronary Angiography The patient's coronary anatomy is right dominant. Diagnostic Cath Left Main 0% stenosis LAD 80% stenosis prior to the first diagonal artery Circumflex 0% stenosis Right Coronary proximal stent had no restenosis Ramus 0% stenosis Left Ventriculography Left Ventriculography was not performed. Hemodynamics The aortic pressure is 136/80 mmHg with a mean of 91 mmHg. The left ventricular pressure is 140/25 mmHg with a mean of mmHg. The left ventricular end diastolic pressure is 25 mmHg. There was no gradient across the aortic valve upon pullback. Pullback from the left ventricle to the aorta revealed no gradient across the aortic valve. PCI Technique Lesion Anticoagulation was achieved with Heparin. Patient was preloaded with Brillinta. Percutaneous coronary intervention was performed on the proximal left anterior descending artery segment. The lesion stenosis prior to intervention was 80% with DALLAS 3 flow. A 7FR XBLAD 4.0 Guide Catheter was used to engage the lm ostium. A BMW 190cm Interventional Guidewire was used to cross the lesion. STENT DEPLOYMENT A drug-eluting stent Xience Alpine RX 2.75X15 was inserted and inflated up to 8.00atm for 10seconds. Repeat angiography revealed the following post-stent deployment results: 30% stenosis. Additional Inflation: 9.00atm for 13seconds. Additional Inflation: 16.00atm for 18seconds. Plaque shift into ostium of first diagonal vessel resulted in 80% [place] [address] CARDIAC CATH REPORT Name: BALWINDER RAY Room: [address]#: [id number] Admission: 12/01/17 Attend Phys: Home Choudhury MD, F Discharge: Date of : 55 Report #: [id number] Final angiography reveals 0 % stenosis with DALLAS 3 flow. PCI Technique Lesion 2 Percutaneous Coronary Intervention was performed on the first diagnonal branch segment. Patient was preloaded with Brillinta. Percutaneous coronary intervention was performed on the first diagonal branch segment. The lesion stenosis prior to intervention was 80% with DALLAS 3 flow. A 7FR XBLAD 4.0 Guide Catheter was used to engage the lm ostium. A BMW 190cm Interventional Guidewire was used to cross the lesion. Balloon Dilation A Balloon catheter Trek RX 2.5 X 8 was inserted and inflated up to 12.00atm for 18seconds. Repeat angiography revealed the following post-dilatation results: 50% stenosis. Additional Inflation: 10.00atm for 10seconds. Additional Inflation: 18.00atm for 25seconds. Final angiography reveals 0 % stenosis with DALLAS 3 flow. Conclusion 1. no restenosis noted of stent in the proximal rca 2. 80% stenosis noted of the proximal lad 3. successful placement of a single drug eluting stent in the proximal lad 4. 80% stenosis noted in ostium of first diagonal branch secondary to plaque shift during stenting of lad 5. successful PTCA of the ostium of the diagonal branch Recommendations Cardiac Rehabilitation Referral Aggressive Medical Therapy Medications Administered Ticagrelor <ELECTRONICALLY SIGNED> By: Home Choudhury MD, [facility] 12/02/17 1614 1614 1614Djason Choudhury MD, FACC /INF
--- NOTE | 2017-12-02 17:23 | NUR ---
POST CATH VS COMPLETED AND DOCUMENTED. GROIN SITE SUPPLE AND NO SIGNS OF BLEEDING, DRESSING STILL HAS A SMALL AMOUNT OF SHADOWING BUT HAS NOT GROWN. PT NOW UP AD MONIK AND HAS BEEN VOIDING WITHOUT DIFFICULTY. HE REMAINS A&O VSS AND CONTINUES TO TRACE SB ON THE MONITOR WITH RATES IN THE 50'S. NURSING WILL CONTINUE TO MONITOR.
[2017-12-03] VITALS: BP 132/83
[2017-12-03 04:00] VITALS: BP 134/76
[2017-12-03 04:44] LABS: HEMATOCRIT 41.4 % (42.0-52.0); HEMOGLOBIN 14.1 gm/dL (14.0-18.0); MCH 31.3 pg (26.0-34.0); MCV 92.1 fL (80.0-100.0); RBC 4.5 mil/uL (4.50-6.00); RDW-CV 13.3 % (10.5-14.5); WBC 7.2 thou/uL (4.0-11.0)
--- NOTE | 2017-12-03 06:52 | NUR ---
RECEIVED REPORT AND ASSUMED CARE AT 1900. VSS. CARDIAC MONITORING IN PLACE. PT REPORTS PAIN IN BACK, PRN MEDICATION ADMIN PER ORDERS. ASSESSMENT COMPLETED CHARTED. PT UP AD MONIK, ON RA. DISCUSSED PLAN OF CARE WITH PT, VERBALIZED UNDERSTANDING. BED LOCKED IN LOWEST POSITION, CALL LIGHT WITHIN REACH. HOURLY ROUNDING COMPLETED AND ALL NEEDS MET. WILL CONTINUE TO MONITOR
[2017-12-03 07:53] VITALS: BP 138/74
[2017-12-03 11:53] VITALS: BP 106/61
[2017-12-03] MEDS ORDERED: LISINOPRIL5 MG PO (12:06)
--- NOTE | 2017-12-03 12:07 | EKG ---
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: : 1955 Requested By: Home Choudhury Order Number: [id number] Reading MD: Lalo Peres Measurements Intervals [place] Rate: 54 P: 70 AR: 191 QRS: -32 QRSD: 109 T: -6 QT: 422 QTc: 400 Interpretive Statements Sinus rhythm Left axis deviation Low voltage, precordial leads Abnormal R-wave progression, early transition Borderline T abnormalities, inferior leads Compared to ECG 12/02/2017 11:47:34 Left-axis deviation now present Low QRS voltage now present T-wave abnormality now present Sinus bradycardia no longer present Myocardial infarct finding no longer present Electronically Signed On 12-03-2017 12:07:18 CDT by Lalo Peres [email or web address] <ELECTRONICALLY SIGNED> By: Lalo Peres MD, [facility] 12/03/17 1207 0756 0756 Lalo Peres MD, [facility] /EPI
--- NOTE | 2017-12-03 12:45 | NUR ---
ASSUMED CARE OF PT AT 0715. PT REMIANS A&O X4 CALM AND COOPERATIVE. VSS AND TRACING SR ON THE MONITOR, CATH SITE TO LEFT GROIN LOOKS WNL WITH NO LUMPS OR EXCESSIVE SWELLING, NO ACTIVE BLEEDING. PT DISCHARGED HOME TO SELF CARE. PT AND VERBALIZED UNDERSTANDING OF DC INSTRUCTIONS THAT INCLUDED MEDICATION MANAGEMENT AND FOLLOW UP CARE WELL ACTIVITY RESTRICTIONS. PT WAS ALSO EDUCATED ON DIETARY MODIFICATIONS. IV AND EDGER HAND REMOVED PRIOR TO DISCHARGE. ALL SCRIPTS AND PERSONAL ITEMS TAKEN AT TIME OF DISCHARGE.
--- NOTE | 2018-01-01 13:00 | D ---
[address] [address] DISCHARGE SUMMARY Name: FLORBALWINDER Daniella Room: [address] IN M.R.#: [id number] Admission: 12/01/17 Attend Phys: Home Choudhury MD, F Discharge: 12/03/17 Date of : 55 Report #: [id number] THIS REPORT FOR: //name// CC: Murtaza Brown DATE OF SERVICE: 12/03/2017 DISCHARGE DIAGNOSES: 1. Coronary artery disease. 2. Paroxysmal atrial fibrillation. 3. Hypertension. 4. Hyperlipidemia. CONSULTANTS: None. PROCEDURES: Left heart catheterization with placement of a single drug-eluting stent in the proximal left anterior descending artery, followed by balloon angioplasty of the first diagonal branch. HISTORY OF PRESENT ILLNESS: The patient is a 62-year-old white male who was brought to the outpatient department to undergo attempts at coronary artery stenting. The patient has long history of hypertension. He had previously been on Micardis, was off blood pressure medications for a period of time. Recently, he has been on hydrochlorothiazide for elevated blood pressure. The patient presented to [facility] at 5:00 a.m. on 11/26/2017, complaining of chest pain. He was found to have an inferior STEMI. He was in atrial fibrillation at that time. I took him urgently to the cardiac catheterization lab. The LAD had a proximal 80% narrowing. The right coronary had a proximal 90% stenosis with a large clot. He was given heparin and Aggrastat. He was loaded with Brilinta. I then placed a single bare metal stent in the right coronary artery. He was then given moderate sedation and cardioverted. Heart rate persisted in atrial fibrillation. He was then started on sotalol and eventually converted to sinus rhythm. Prior to discharge, he was ambulating, had no further complaints. He developed no hematoma in the groin. His peak troponin was 33. His cholesterol was 280, triglyceride 451, HDL 34, LDL could not be calculated. At the time of discharge, he is in sinus rhythm. ECG showed small inferior Q-waves. He was discharged on his home medications, although he was taken off of hydrochlorothiazide. He was to continue Soma for chronic back pain. He takes Valium as needed for sedation. Hydrocodone for chronic back pain. He was discharged also on aspirin 81 mg a day, Lipitor 80 mg a day, sotalol 80 mg twice day, Brilinta 90 mg twice a day. He was just discharged on 11/28. He notes since his discharge, he has had no further chest pain or palpitations. However, the past day, he had not been feeling well. He felt lightheaded, short of breath and sweaty. He felt somewhat nauseated[place] [address] DISCHARGE SUMMARY Name: BALWINDER RAY Room: [address] IN .R.#: [id number] Admission: 12/01/17 Attend Phys: Home Choudhury MD, F Discharge: 12/03/17 Date of : 55 Report #: [id number] Emergency Room and was admitted. PAST MEDICAL HISTORY: Significant for 3 knee surgery, back surgery, appendectomy, hypertension, hyperlipidemia. MEDICATIONS: Consists of aspirin, Brilinta, sotalol, Lipitor, Soma, hydrocodone, Valium. PHYSICAL EXAMINATION ON ADMISSION: VITAL SIGNS: His blood pressure was elevated at 140/80, pulse is 70, he is afebrile. CHEST: Clear to auscultation. HEART: Regular rate and rhythm. ABDOMEN: Soft. EXTREMITIES: No edema. SKIN: Warm and dry. LABORATORY DATA: His ECG showed a sinus rhythm, evidence of previous inferior infarction, incomplete right bundle-branch block. His workup in the Emergency Room, he had a chest x-ray that showed normal heart size, clear lung gutierrez. He actually underwent a CT scan of the chest using a PE protocol that showed no pulmonary embolus. HOSPITAL COURSE: The patient was started on Lovenox for possible unstable angina. The following day, I took him back to the cardiac catheterization lab and performed an angiogram from the left femoral artery. Results showed no restenosis of the stent in the right coronary artery. The LAD continued to have an 80% narrowing just prior to the takeoff of the diagonal branch. No disease in circumflex artery. He was given heparin. I then placed a new drug-eluting stent in the LAD. There was some plaque shift into the diagonal branch. I did perform balloon angioplasty through the struts of the stent into the diagonal artery. He tolerated the procedure well. An Angio-Seal was placed. Fortunately, the patient developed no significant hematoma in the groin. He has had no further chest pain, shortness of breath, arrhythmias. The patient was discharged on his home medications that consisted of aspirin 81 mg a day, Lipitor 80 mg a day, Soma 350 mg 3 times a day. Because of his elevated blood pressure, we started lisinopril 5 mg a day. He was to continue sotalol 80 mg twice day, Brilinta 90 mg twice a day and he has nitroglycerin to take as needed for chest pain. He was discharged to return to care of Dr. Talib Mayorga for routine medical care. He is scheduled to see my nurse practitioner in 1 week. I did recommend he enroll in cardiac rehabilitation. The patient was instructed to follow up with his primary care physician, Dr. Mayorga. I plan to see him in Cardiology Clinic in 2 months for followup. [place] [address] DISCHARGE SUMMARY Name: BALWINDER RAY Room: [address] IN M.R.#: [id number] Admission: 12/01/17 Attend Phys: Home Choudhury MD, F Discharge: 12/03/17 Date of : 55 Report #: [id number] from cardiac standpoint. He was to contact my office if he had recurrent palpitations, chest pain or bleeding. <ELECTRONICALLY SIGNED> By: Raj White MD, FACC 01/01/18 1300 1442 1513Djason Choudhury MD, FACC /nt
== END 2017-12-03 12:45 | disposition home or self-care (01) | DRG 246 ==
LOC: M.ERS 11:11 → M.TBA-ER 12:59 → M.2W 12:59
PROVIDERS: Family Medicine; ADMIT Internal Medicine Cardiovascular Disease
PROC: 027034Z Dilation of Coronary Artery, One Artery with Drug-eluting Intraluminal Device, Percutaneous Approach (ICD-10-PCS; principal; 2017-12-02)
PROC: 4A023N7 Measurement of Cardiac Sampling and Pressure, Left Heart, Percutaneous Approach (ICD-10-PCS; principal; 2017-12-02)
PROC: B2111ZZ Fluoroscopy of Multiple Coronary Arteries using Low Osmolar Contrast (ICD-10-PCS; principal; 2017-12-02)
PROC: 02703ZZ Dilation of Coronary Artery, One Artery, Percutaneous Approach (ICD-10-PCS; principal; 2017-12-02)
DX: I25.10 Atherosclerotic heart disease of native coronary artery without angina pectoris (principal); I50.33 Acute on chronic diastolic (congestive) heart failure; I48.91 Unspecified atrial fibrillation; F41.9 Anxiety disorder, unspecified; I10 Essential (primary) hypertension; M19.90 Unspecified osteoarthritis, unspecified site; E78.5 Hyperlipidemia, unspecified; I25.2 Old myocardial infarction; Z95.5 Presence of coronary angioplasty implant and graft; Z90.49 Acquired absence of other specified parts of digestive tract; Z79.82 Long term (current) use of aspirin; Z79.899 Other long term (current) drug therapy; Z88.5 Allergy status to narcotic agent

== ENCOUNTER 2018-08-20 05:21 | Emergency (ER) | payer OTHER ==
[~2018-08-20] VITALS: Ht 182.9 cm; Wt 113.4 kg
[~2018-08-20 05:21] MED LIST changes: +LISINOPRIL5 MG PO; +NORCO 7.5-3251 EACH PO
[2018-08-20 05:52] LABS: ABSOLUTE BASOPHILS 0.1 thou/uL (0.0-0.2); ABSOLUTE EOSINOPHILS 0.1 thou/uL (0.0-0.7); ABSOLUTE LYMPHOCYTES 2.1 thou/uL (0.8-5.3); ABSOLUTE MONOCYTES 0.9 thou/uL (0.0-1.2); ABSOLUTE NEUTROPHILS 6.9 thou/uL (1.6-8.1); BASOPHILS 0.9 %; EOSINOPHILS 1.3 %; HEMATOCRIT 41.6 % (42.0-52.0); HEMOGLOBIN 14.5 gm/dL (14.0-18.0); LYMPHOCYTES 20.6 %; MCH 31.6 pg (26.0-34.0); MCHC 34.7 g/dL (28.0-37.0); MCV 91.1 fL (80.0-100.0); MONOCYTES 9.1 %; MPV 7.7 fl. (7.2-11.1); NUCLEATED RBCS 0 /100WBC; PLATELET COUNT* 185 thou/uL (150-400); POLYS 68.1 %; RBC 4.57 mil/uL (4.50-6.00); RDW-CV 13.6 % (10.5-14.5); WBC 10.1 thou/uL (4.0-11.0)
[2018-08-20 06:03] LABS: CALCIUM 8.6 mg/dL (8.5-10.1); CREATININE 0.8 mg/dL (0.6-1.3); POTASSIUM 4.2 mmol/L (3.5-5.1)
[2018-08-20 06:06] LABS: URIC ACID* 7.1 mg/dL (2.6-7.2)
[2018-08-20] MEDS ORDERED: PREDNISONE 20 M20 M1 PO (06:34)
[2018-08-20] MEDS ORDERED: NORCO 7.5-3251 EACH PO (06:36)
[2018-08-20 06:52] VITALS: BP 144/87
== END 2018-08-20 06:55 | disposition home or self-care (01) ==
LOC: M.ERS 05:21
PROVIDERS: Emergency Medicine
DX: M25.472 Effusion, left ankle (principal); M25.572 Pain in left ankle and joints of left foot; F41.9 Anxiety disorder, unspecified; Z90.49 Acquired absence of other specified parts of digestive tract

== ENCOUNTER 2018-11-23 09:57 | Observation (INO) | payer OTHER ==
[2018-11-23] VITALS (10 sets, daily range): BP systolic 126–204; BP diastolic 51–120
[~2018-11-23] VITALS: Ht 182.9 cm; Wt 124.2 kg
[~2018-11-23 09:57] MED LIST changes: +PREDNISONE 20 M20 M1 PO
[2018-11-23 10:29] LABS: ABSOLUTE EOSINOPHILS 0.1 thou/uL (0.0-0.7); ABSOLUTE LYMPHOCYTES 1.9 thou/uL (0.8-5.3); ABSOLUTE MONOCYTES 0.5 thou/uL (0.0-1.2); ABSOLUTE NEUTROPHILS 4.2 thou/uL (1.6-8.1); BASOPHILS 0.6 %; EOSINOPHILS 0.9 %; HEMATOCRIT 41.7 % (42.0-52.0); HEMOGLOBIN 14.5 gm/dL (14.0-18.0); LYMPHOCYTES 28.1 %; MCH 31.5 pg (26.0-34.0); MCHC 34.7 g/dL (28.0-37.0); MCV 90.6 fL (80.0-100.0); MONOCYTES 7.2 %; MPV 7.7 fl. (7.2-11.1); NUCLEATED RBCS 0 /100WBC; PLATELET COUNT* 185 thou/uL (150-400); POLYS 63.2 %; RBC 4.61 mil/uL (4.50-6.00); RDW-CV 13.8 % (10.5-14.5); WBC 6.6 thou/uL (4.0-11.0)
[2018-11-23 10:38] LABS: ANION GAP 10 mmol/L (7-16); BUN 11 mg/dL (7-18); CALCIUM 8.5 mg/dL (8.5-10.1); CHLORIDE 102 mmol/L (98-107); CO2 28 mmol/L (21-32); GLUCOSE 140 mg/dL (70-99); POTASSIUM 3.5 mmol/L (3.5-5.1); SODIUM 140 mmol/L (136-145)
[2018-11-23 10:43] LABS: PROTIME 10.7 Seconds (9.20-11.50)
[2018-11-23 10:52] LABS: ALBUMIN 3.9 g/dL (3.4-5.0); ALKALINE PHOSPHATASE 85 U/L (46-116); LIPASE 143 U/L (73-393); NT-PRO BRAIN NAT PEPTIDE 291 pg/mL (<300); SGOT 17 U/L (15-37); SGPT 31 U/L (30-65); TOTAL BILIRUBIN 0.8 mg/dL (<0.1-1.0); TROPONIN-I LEVEL <0.06 ng/mL (<0.06)
[2018-11-23 14:47] LABS: CHOLESTEROL 133 mg/dL (<200); HDL CHOLESTEROL 40 mg/dL (>40); LDL CHOLESTEROL 45 mg/dL (<100); TC:HDL 3.3 Ratio (Not establshd); TRIGLYCERIDE 244 mg/dL (<150); VLDL 49 mg/dL (<40)
[2018-11-23 14:48] LABS: SERUM ASSESSMENT Clear
--- NOTE | 2018-11-23 15:23 | EKG ---
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1955 Requested By: Amy Sandoval Order Number: [id number] MD: Raj White Measurements Intervals [place] Rate: 83 P: 63 HI: 182 QRS: -24 QRSD: 114 T: 4 QT: 350 QTc: 412 Interpretive Statements Sinus rhythm Incomplete right bundle branch block Inferior infarct, old Compared to ECG 12/03/2017 07:56:07 Incomplete right bundle-branch block now present Myocardial infarct finding now present Left-axis deviation no longer present T-wave abnormality no longer present Electronically Signed On 11-23-2018 15:23:34 CDT by Raj White [email or web address] <ELECTRONICALLY SIGNED> By: Raj White MD, FACC 11/23/18 1523 1000 1000 Raj White MD, FAC /EPI
--- NOTE | 2018-11-23 15:47 | 2DMMODE ---
[place] [address] 2 D/M-MODE ECHOCARDIOGRAM Name: BALWINDER RAY Room: [address] IN [facility]#: [id number] Admission: 11/23/18 Attend Phys: Isaak Lee, Discharge: Date of : 55 Date of Service: 11/23/18 1547 Report #: [id number] THIS REPORT FOR: //name// APPROVED REPORT Study performed: 11/23/2018 14:38:34 EXAM: Comprehensive 2D, Doppler, and color-flow Echocardiogram Patient Location: In-Patient Room #: er Status: routine BSA: 2.38 HR: 73 bpm BP: 138/72 mmHg Rhythm: NSR Other Information Study Quality: Good Indications Arrhythmia 2D Dimensions IVSd: 14.42 (7-11mm) LVOT Diam: 23.67 (18-24mm) LVDd: 53.58 mm PWd: 12.02 (7-11mm) Ascending Ao: 31.10 (22-36mm) LVDs: 33.98 (25-40mm) Aortic Root: 37.75 mm Volumes Left Atrial Volume (Systole) LA ESV Index: 28.90 mL/m2 Aortic Valve AoV Peak Jan.: 1.23 m/s AO Peak Gr.: 6.04 mmHg LVOT Max P.56 mmHg AO Mean Gr.: 3.33 mmHg LVOT Mean P.53 mmHg LVOT Max V: 0.94 m/s AO V2 VTI: 26.73 cm LVOT Mean V: 0.56 m/s SATYA (VTI): 3.59 cm2 LVOT V1 VTI: 21.84 cm Mitral Valve E/A Ratio: 0.87 MV Decel. Time: 157.47 ms MV E Max Jan.: 0.71 m/[place] [address] 2 D/M-MODE ECHOCARDIOGRAM Name: BALWINDER RAY Room: [address] IN .R.#: [id number] Admission: 11/23/18 Attend Phys: Isaak Lee, Discharge: Date of : 55 Date of Service: 11/23/18 1547 Report #: [id number] MV PHT: 45.67 ms MVA (PHT): 4.82 cm2 TDI E/Lateral E': 5.92 E/Medial E': 7.89 Medial E' Jan.: 0.09 m/s Lateral E' Jan.: 0.12 m/s Pulmonary Valve PV Peak Jan.: 1.18 m/s PV Peak Gr.: 5.54 mmHg Left Ventricle The left ventricle is normal size. There is normal LV segmental wall motion. There is normal left ventricular wall thickness. Left ventricular systolic function is normal. LVEF is 55-60%. Grade I - abnormal relaxation pattern. Right Ventricle The right ventricle is normal size. The right ventricular systolic function is normal. Atria Left atrium is moderately dilated. The right atrium size is normal. Aortic Valve The aortic valve is normal in structure. No aortic regurgitation is present. There is no aortic valvular stenosis. Mitral Valve The mitral valve is normal in structure. Trace mitral regurgitation. No evidence of mitral valve stenosis. Tricuspid Valve The tricuspid valve is normal in structure. Trace tricuspid regurgitation. Pulmonic Valve The pulmonary valve is normal in structure. There is no pulmonic valvular regurgitation. Great Vessels The aortic root is normal in size. IVC is normal in size and collapses >50% with [place] [address] 2 D/M-MODE ECHOCARDIOGRAM Name: BALWINDER RAY Room: [address] IN [facility]#: [id number] Admission: 11/23/18 Attend Phys: Isaak Lee, Discharge: Date of : 55 Date of Service: 11/23/18 1547 Report #: [id number] There is no pericardial effusion. <Conclusion> The left ventricle is normal size. There is normal left ventricular wall thickness. Left ventricular systolic function is normal. LVEF is 55-60%. Grade I - abnormal relaxation pattern. There is normal LV segmental wall motion. Left atrium is moderately dilated. Trace mitral regurgitation. Trace tricuspid regurgitation. IVC is normal in size and collapses >50% with inspiration. <ELECTRONICALLY SIGNED> By: Raj White MD, FACC 11/23/18 1547 1547 154 Raj White MD, FACC /INF
--- NOTE | 2018-11-23 17:43 | NUR ---
RECEIVED REPORT FROM ER AT 1600, PT AOX4, UP AD MONIK, O2 SAT 90'S RA. TELE IN PLACED TRACING SR ON MONITOR. PT DENIES PAIN. DURING INITIAL VS, PT BP HIGH 204/120, DR NOTIFIED, HYDRALAZINE GIVEN. PT HAD 1ST PART OF STRESS TEST. NPO MIDNIGHT FOR THE SECOND PART. ADMISSION ASSESSMENT CHARTED, HOURLY ROUNDING, CALL LIGHT WITHIN REACH WILL CONTINUE TO MONITOR.
--- NOTE | 2018-11-23 20:30 | NUR ---
PT HAVING ACTIVE CHEST PAIN AT 1910. VERY ANXIOUS, RESTLESS, STATING NO ONE IS DOING ANY THING FOR ME. BP HIGH 187/106. ATTEMPTED TO CALM PT DOWN. NTG GIVEN. DOCTORS NOTIFIED BY ANOTHER RN. AFTER PT GIVEN TOTAL OF 2 NTG AND DIAZPAM GIVEN, STATES CHEST PAIN WAS GONE. BP 126/73. PT WAS NOT GIVEN MORPHINE OR CLONIPINE ORDERED, NOT NECESSARY. TELEMETRY ON SHOWING SB/SR AT THIS TIME. WILL CONT TO MONITOR AND ASSIST NEEDED.
[2018-11-24] VITALS: BP 149/79
[2018-11-24 02:04] LABS: CALCIUM 9.1 mg/dL (8.5-10.1); CREATININE 0.9 mg/dL (0.6-1.3); MAGNESIUM 1.8 mg/dL (1.8-2.4); POTASSIUM 3.8 mmol/L (3.5-5.1)
[2018-11-24 02:10] LABS: GLYCOHEMOGLOBIN (HGB A1C) 5.8 % (4.8-5.6)
[2018-11-24 03:54] VITALS: BP 151/87
--- NOTE | 2018-11-24 06:38 | NUR ---
NO FURTHER C/O CHEST PAIN TONIGHT. DOES HAVE PAIN INTO BACK AND RT KNEE, PO PAIN MEDS GIVEN. NPO SINCE MN FOR COMPLETION OF STRESS TEST TODAY. TELEMETRY CONT TO SHOW SR. HS GOALS OF REST AND SAFETY ACHIEVED. HOURLY ROUNDING OBSERVED.
[2018-11-24 08:00] VITALS: BP 172/101; BP 172/102
--- NOTE | 2018-11-24 12:00 | NUR ---
ASSUMED PT CARE AT 0800, AOX4, UP AD MONIK, O2 SAT 90'S RA. TRACING SR ON TELE. PT COMPLAINS OF BACK PAIN. BP RUNS HIGH. PT ANXIOUS THIS AM. PT HAD STRESS TEST. AM ASSESSMENT CHARTED. MEDS GIVEN PER MAR. CALL LIGHT WITHIN REACH. WILL CONINUE TO MONITOR.
--- NOTE | 2018-11-24 15:02 | NUR ---
Pt is A&O. Resides at home with his . Independent. Pt has a cane that he uses PRN. No hx of HH or SNF. Goal is home at ms, no needs anticipated.
[2018-11-24 16:02] VITALS: BP 162/90
--- NOTE | 2018-11-24 16:46 | CARDNUC ---
[place] [address] CARDIAC NUCLEAR IMAGING REPORT Name: BALWINDER RAY Room: [address] IN [facility]#: [id number] Admission: 11/23/18 Attend Phys: Isaak Lee, Discharge: Date of : 55 Date of Service: 11/24/18 1646 Report #: [id number] THIS REPORT FOR: //name// APPROVED REPORT Study performed: 11/24/2018 12:28:17 Exam: Nuclear Stress Test Indication: jaw pain, htn, dizzy Patient Location: In-Patient Room #: 200 Stress Tech: Kaela Guido Stress Nurse: Gladis Jasmine RN Ht: 5 ft 10 in Wt: 260 lbs BSA: 2.33 m2 BMI: 37.30 Medical History Medical History: cad, mi, hypertension, Medications: atorvastatin, ticagrelor, asa-81, lisinopril, stoalol Allergies: nkda Cardiac Risk Factors: age, hyperlipidemia, hypertension Previous Cardiac Procedures: pci Exercise History: Indeterminate Stress Test Details Stress Test: Pharmacologic stress testing performed using 0.4 mg of regadenoson per 5 mL given IV over 10 seconds. Reason for pharmacologic stress test: physical limitation. HR Resting HR: 98 bpm Max Heart Rate (APMHR): 157 bpm Max HR Achieved: 112 bpm Target HR (85% APMHR): 133 bpm % of APMHR: 71 Recovery HR: 103 bpm BP Resting BP: 152/94 mmHg Max BP: 146/95 mmHg ECG Resting ECG: sinus rhythm with incomplete right bundle-branch block. No significant ST or T wave abnormalities. Stress ECG: sinus rhythm with incomplete right bundle[place] [address] CARDIAC NUCLEAR IMAGING REPORT Name: RAYBALWINDER Daniella Room: [address] IN [facility].#: [id number] Admission: 11/23/18 Attend Phys: Isaak Lee, Discharge: Date of : 55 Date of Service: 11/24/18 1646 Report #: [id number] block. No significant ST or T wave abnormalities. ST Change: None Arrhythmia: None Recovery ECG: sinus rhythm with incomplete right bundle-branch block. No significant ST or T wave abnormalities. Recovery ST Change: None Recovery Arrhythmia: None Clinical Reason for Termination: Completed protocol Exercise duration: 0 min sec Exercise capacity: 1 METs The patient tolerated Lexiscan infusion without significant cardiac symptoms. Nurse Comments pt has bad knees and is unable to walk of treadmill Stress ECG Conclusion The baseline 12-lead EKG showed sinus rhythm with incomplete right bundle-branch block. There wereno ST or T wave abnormalities. EKGs obtained during and post Lexiscan infusion show sinus rhythm and sinus tachycardia with no significant ST or T wave changes when compared to baseline. There were no stress-induced arrhythmias. NM EXAM: Myocardial Perfusion REST/STRESS Imaging Protocol: Rest Tc-99m/Stress Tc-99m 2 days Resting Data Rest SPECT myocardial perfusion imaging was performed in supine position 30 minutes following the intravenous injection of 37.6 mCi of Tc-99m Sestamibi. Time of rest injection: 15:15 Date: 11/23/2018 The images were gated to evaluate regional wall motion and calculate left ventricular ejection fraction. Administration Route: IV Administration Site: Right AC Pharmacologic Stress Pharmacologic stress test was performed by injecting Regadenoson 0.4 mg IV push followed by the intravenous injection of 31.0 mCi of Tc-99m Sestamibi. Time of stress injection: 12:30 Date: 11/24/2018 Administration Route: IV Administration Site: Right AC Heart Rate at time of stress injection: [address] [place] [address] CARDIAC NUCLEAR IMAGING REPORT Name: BALWINDER RAY Room: [address]#: [id number] Admission: 11/23/18 Attend Phys: Isaak Lee, Discharge: Date of : 55 Date of Service: 11/24/18 1646 Report #: [id number] Gated Stress SPECT was performed 40 minutes after stress injection. The images were gated to evaluate regional wall motion and calculate left ventricular ejection fraction. Prone imaging was performed. Study Quality Study: Good Artifact: No artifact Study Data At rest, the left ventricular ejection fraction was 55%.. Post stress, the left ventricular ejection was 63%.. TID = 0.83. Perfusion There is a moderate size severe intensity fixed defect involving the basal to mid inferior and inferolateral wall. No other significant fixed or reversible defects were identified. Wall Motion Mild hypokinesis of the inferior wall. Nuclear Conclusion ECG Findings: negative for ischemia Clinical Findings: negative for ischemia Nuclear Findings: negative for ischemia Exercise Capacity: not assessed Left Ventricular Function: preserved Myocardial perfusion images show evidence of prior inferolateral wall infarct. There is no evidence of residual ischemia. Global LV systolic function is fairly well-preserved. This is not a high risk study. <Conclusion> The baseline 12-lead EKG showed sinus rhythm with incomplete right bundle-branch block. There wereno ST or T wave abnormalities. EKGs obtained during and post Lexiscan infusion show sinus rhythm and sinus tachycardia with no significant ST or T wave changes when compared to baseline. There were no stress-induced arrhythmias. <ELECTRONICALLY SIGNED> By: Raj White MD, FACC 11/24/18 1646 1646 1646 Raj White MD, FACC /INF
[2018-11-24] MEDS ORDERED: COZAAR 50 MG TA50 M1 PO (17:46)
[2018-11-24 17:57] VITALS: BP 162/90
--- NOTE | 2018-11-24 18:39 | NUR ---
DISCUSSED DISCHARGE PLAN WITH THE PATIENT. CARDIOLOGY OK TO CT. DR CHARLES NOTIFIED [facility] DISCHARGE. RECEIVED TELEPHONE ORDER VIA DR BARNETT. PRESCRIPTION SEND ELECTRONIC BY CARDIOLOGY. REMINDED PT FOR FOLLOW UP WITH PCP, CARDIOLOGY, REFERAL WITH VASCULAR, OUTPATIENT CT ANGIO. IV TELE REMOVED. ALL BELONGINGS PACKED AND CHECKED. LEFT THE UNIT 1830 AMBULATORY.
[2018-11-28 15:10] LABS: RENIN 1.822 ng/mL/hr (0.167-5.380)
== END 2018-11-24 18:30 | disposition home or self-care (01) ==
LOC: M.ERS 09:57 → M.2W 12:55 → M.TBA-ER 12:55 → M.2W 15:24
PROVIDERS: Personal Emergency Response Attendant; Registered Nurse; ADMIT Internal Medicine
DX: I16.0 Hypertensive urgency (principal); I10 Essential (primary) hypertension; I42.9 Cardiomyopathy, unspecified; R07.89 Other chest pain; R68.84 Jaw pain; I25.10 Atherosclerotic heart disease of native coronary artery without angina pectoris; R73.9 Hyperglycemia, unspecified; E78.5 Hyperlipidemia, unspecified; I25.2 Old myocardial infarction; Z95.5 Presence of coronary angioplasty implant and graft; Z79.82 Long term (current) use of aspirin; Z79.899 Other long term (current) drug therapy

== ENCOUNTER → 2018-12-04 | Outpatient (CLI) | payer OTHER ==
[~2018-12-04] MED LIST changes: +COZAAR 50 MG TA50 M1 PO
== END ==
LOC: M.CT 12:14
DX: N28.1 Cyst of kidney, acquired (principal)

== ENCOUNTER 2019-03-11 12:20 | Emergency (ER) | payer OTHER ==
[~2019-03-11] VITALS: Ht 182.9 cm; Wt 127.0 kg
[2019-03-11] MEDS ORDERED: MICROZIDE12.5 MG PO (12:31)
[2019-03-11 13:05] LABS: ABSOLUTE BASOPHILS 0.1 thou/uL (0.0-0.2); ABSOLUTE LYMPHOCYTES 2.6 thou/uL (0.8-5.3); ABSOLUTE MONOCYTES 0.8 thou/uL (0.0-1.2); ABSOLUTE NEUTROPHILS 5.1 thou/uL (1.6-8.1); BASOPHILS 0.7 %; EOSINOPHILS 0.6 %; HEMATOCRIT 45.5 % (42.0-52.0); HEMOGLOBIN 16.2 gm/dL (14.0-18.0); LYMPHOCYTES 29.9 %; MCH 31.8 pg (26.0-34.0); MCHC 35.5 g/dL (28.0-37.0); MCV 89.7 fL (80.0-100.0); MONOCYTES 9.6 %; MPV 7.2 fl. (7.2-11.1); NUCLEATED RBCS 0 /100WBC; PLATELET COUNT* 234 thou/uL (150-400); POLYS 59.2 %; RBC 5.08 mil/uL (4.50-6.00); RDW-CV 13.1 % (10.5-14.5); WBC 8.6 thou/uL (4.0-11.0)
[2019-03-11 13:05] LABS: URINE BILIRUBIN NEGATIVE (Negative); URINE BLOOD 1+ (Negative); URINE CLARITY CLEAR; URINE COLOR YELLOW; URINE GLUCOSE-RANDOM NEGATIVE (Negative); URINE KETONES NEGATIVE (Negative); URINE LEUKOCYTES-REFLEX NEGATIVE (Negative); URINE NITRITE-REFLEX NEGATIVE (Negative); URINE PROTEIN NEGATIVE (Negative); URINE SPECIFIC GRAVITY <= 1.005 (1.005-1.030); URINE UROBILINOGEN 0.2 E.U./dl (0.2-1.0)
[2019-03-11 13:13] LABS: CALCIUM 8.6 mg/dL (8.5-10.1); CREATININE 0.8 mg/dL (0.6-1.3); POTASSIUM 3.7 mmol/L (3.5-5.1)
[2019-03-11 13:15] LABS: APTT 26.3 Seconds (25.0-31.3); INR 1.1; PROTIME 10.8 Seconds (9.20-11.50)
[2019-03-11 13:18] LABS: ALBUMIN 4.6 g/dL (3.4-5.0); TOTAL BILIRUBIN 0.7 mg/dL (<0.1-1.0); TOTAL PROTEIN 8.2 g/dL (6.4-8.2)
[2019-03-11 13:53] LABS: BACTERIA-REFLEX 1-9 Few /HPF (None Seen); CASTS None Seen /LPF (None Seen); CRYSTALS None Seen /LPF (None Seen); MUCUS None Seen strn/LPF (None Seen); SQUAMOUS 0-3 Few /LPF (0-3); URINE RBC 3-10 Few /HPF (0-2); URINE WBC-REFLEX 0-5 Rare /HPF (0-5)
[2019-03-11] MEDS ORDERED: CIPRO500 MG PO ×2 (15:23→15:29)
[2019-03-11] MEDS ORDERED: FLOMAX0.4 MG PO ×2 (15:29)
[2019-03-11] MEDS ORDERED: NORCO 5-325 TA1 EAC1 PO (15:29)
[2019-03-11 15:50] VITALS: BP 142/78
== END 2019-03-11 15:50 | disposition home or self-care (01) ==
LOC: M.ERS 12:20
PROVIDERS: Family Medicine; Nurse Practitioner Family
DX: N40.0 Benign prostatic hyperplasia without lower urinary tract symptoms (principal); N39.0 Urinary tract infection, site not specified; F41.9 Anxiety disorder, unspecified; I25.2 Old myocardial infarction; Z90.49 Acquired absence of other specified parts of digestive tract; Z98.890 Other specified postprocedural states

== ENCOUNTER 2019-03-22 18:41 | Inpatient (IN) | payer OTHER ==
[~2019-03-22] VITALS: Ht 182.9 cm; Wt 122.5 kg
--- NOTE | ~2019-03-22 | H ---
[address] [address] HISTORY AND PHYSICAL Name: BALWINDER RAY Room: [address] IN M.R.#: [id number] Admission: 03/22/19 Attend Phys: Teresa castro Lyman Discharge: 03/23/19 Date of : 55 Report #: [id number] THIS REPORT FOR: //name// Patient was here less than 24 hour please refer to the final summation note. Patient left against medical advice. By: 0636Medical Records Staff RAUL /FARNAZ
[~2019-03-22 18:41] MED LIST changes: +CIPRO500 MG PO; +FLOMAX0.4 MG PO; +MICROZIDE12.5 MG PO; +NORCO 5-325 TA1 EAC1 PO
[2019-03-22 18:44] VITALS: BP 170/98
[2019-03-22 19:04] LABS: ABSOLUTE BASOPHILS 0.1 thou/uL (0.0-0.2); ABSOLUTE EOSINOPHILS 0.1 thou/uL (0.0-0.7); ABSOLUTE LYMPHOCYTES 2.6 thou/uL (0.8-5.3); ABSOLUTE MONOCYTES 0.6 thou/uL (0.0-1.2); ABSOLUTE NEUTROPHILS 3.6 thou/uL (1.6-8.1); BASOPHILS 0.9 %; EOSINOPHILS 1.7 %; HEMATOCRIT 40.7 % (42.0-52.0); HEMOGLOBIN 14.3 gm/dL (14.0-18.0); LYMPHOCYTES 37.3 %; MCH 31.8 pg (26.0-34.0); MCHC 35.2 g/dL (28.0-37.0); MCV 90.3 fL (80.0-100.0); MONOCYTES 9.2 %; MPV 7.2 fl. (7.2-11.1); NUCLEATED RBCS 0 /100WBC; PLATELET COUNT* 188 thou/uL (150-400); POLYS 50.9 %; RBC 4.51 mil/uL (4.50-6.00); RDW-CV 13.3 % (10.5-14.5)
[2019-03-22 19:13] LABS: CALCIUM 8.7 mg/dL (8.5-10.1); POTASSIUM 3.4 mmol/L (3.5-5.1)
[2019-03-22 19:17] LABS: APTT 26.5 Seconds (25.0-31.3); PROTIME 10.4 Seconds (9.20-11.50)
[2019-03-22 19:26] LABS: ALBUMIN 4.1 g/dL (3.4-5.0); MAGNESIUM 1.6 mg/dL (1.8-2.4); TOTAL BILIRUBIN 0.3 mg/dL (<0.1-1.0); TOTAL PROTEIN 7.2 g/dL (6.4-8.2)
[2019-03-22] MEDS ORDERED: TOPROL XL25 MG PO (20:45)
[2019-03-22 22:15] VITALS: BP 168/96
[2019-03-22 22:18] VITALS: BP 168/96
--- NOTE | 2019-03-23 12:12 | EKG ---
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 : 1955 Requested By: Rancho Younger Order Number: [id number] MD: Mickey Bridgse Measurements Intervals [place] Rate: 99 P: 53 CT: 188 QRS: -38 QRSD: 117 T: 29 QT: 345 QTc: 443 Interpretive Statements Sinus rhythm Incomplete right bundle branch block Inferior infarct, old Consider anterior infarct Baseline wander in lead(s) I,III,aVL Compared to ECG 11/23/2018 10:00:36 No significant changes Electronically Signed On 03-23-2019 12:12:09 [employer] by Mickey Bridges [email or web address] <ELECTRONICALLY SIGNED> By: Mickey Bridges MD, FACC 03/23/19 1212 1845 1845 Mickey Bridges MD, FAC /EPI
== END 2019-03-23 00:15 | disposition left against medical advice (07) | DRG 310 ==
LOC: M.ERS 18:41 → M.TBA-ER 21:29 → M.2W 22:26
PROVIDERS: Family Medicine; ADMIT Family Medicine
DX: R00.2 Palpitations (principal); Z90.49 Acquired absence of other specified parts of digestive tract; F41.9 Anxiety disorder, unspecified; I25.10 Atherosclerotic heart disease of native coronary artery without angina pectoris; I48.0 Paroxysmal atrial fibrillation; F41.1 Generalized anxiety disorder; Z53.29 Procedure and treatment not carried out because of patient's decision for other reasons; Z95.5 Presence of coronary angioplasty implant and graft; Z79.899 Other long term (current) drug therapy; Z79.82 Long term (current) use of aspirin

== ENCOUNTER → 2019-10-11 | Outpatient (CLI) | payer OTHER ==
[~2019-10-11] MED LIST changes: +TOPROL XL25 MG PO
[2019-10-11 15:34] LABS: HEMATOCRIT 44.4 % (42.0-52.0); HEMOGLOBIN 15.8 gm/dL (14.0-18.0); MCH 31.7 pg (26.0-34.0); MCHC 35.5 g/dL (28.0-37.0); MCV 89.2 fL (80.0-100.0); MPV 7.4 fl. (7.2-11.1); RBC 4.98 mil/uL (4.50-6.00); WBC 11.1 thou/uL (4.0-11.0)
[2019-10-11 15:47] LABS: CHOLESTEROL 157 mg/dL (<200); HDL CHOLESTEROL 38 mg/dL (>40); LDL CHOLESTEROL 81 mg/dL (<100); MAGNESIUM 1.9 mg/dL (1.8-2.4); TC:HDL 4.1 Ratio (Not establshd); TRIGLYCERIDE 194 mg/dL (<150); VLDL 39 mg/dL (<40)
[2019-10-11 15:48] LABS: SERUM ASSESSMENT CLEAR
== END ==
LOC: M.LAB 15:07
PROVIDERS: ATTEND Registered Nurse
DX: R00.2 Palpitations (principal); I10 Essential (primary) hypertension

== ENCOUNTER 2019-10-19 14:43 | Emergency (ER) | payer OTHER ==
[~2019-10-19] VITALS: Ht 182.9 cm; Wt 122.5 kg
[2019-10-19] MEDS ORDERED: MUPIROCIN15 GM TOP (15:23)
[2019-10-19] MEDS ORDERED: KEFLEX500 M1 PO (15:23)
[2019-10-19 15:39] VITALS: BP 165/96
== END 2019-10-19 15:40 | disposition home or self-care (01) ==
LOC: M.ERS 14:43
DX: L03.114 Cellulitis of left upper limb (principal); I48.91 Unspecified atrial fibrillation; I25.10 Atherosclerotic heart disease of native coronary artery without angina pectoris; F41.9 Anxiety disorder, unspecified; Z90.49 Acquired absence of other specified parts of digestive tract; Z95.5 Presence of coronary angioplasty implant and graft

== ENCOUNTER → 2020-06-26 | Outpatient (CLI) | payer OTHER ==
[~2020-06-26] MED LIST changes: +KEFLEX500 M1 PO; +MUPIROCIN15 GM TOP
--- NOTE | 2020-06-26 14:57 | EXE ---
[place] [address] STRESS ECHOCARDIOGRAM Name: BALWINDER RAY Room: [facility]#: [id number] Admission: 06/26/20 Attend Phys: Home Choudhury MD Discharge: Date of : 55 Date of Service: 06/26/20 1457 Report #: [id number] THIS REPORT FOR: cc: Murtaza Mayorga Bradley L. DO Liston, Michael J. MD [facility] ~ APPROVED REPORT Study performed: 06/26/2020 11:13:54 Exam: Stress Echocardiogram Indication: CAD Patient Location: Out-Patient Stress Nurse: Gladis Jasmine RN Supervising Physician: Raj White MD Status: routine Ht: 6 ft 0 in HR: 83 bpm BP: 135/76 mmHg Rhythm: NSR Medical History Medical History: CAD s/p OR Medications: ASA, Losartan, nitro, atorvastatin, microzide Allergies: codeine Cardiac Risk Factors: HTN, Hyperlipidemia Previous Cardiac Procedures: PCI Procedure The patient underwent an Exercise Stress Test using the Levi Protocol. Blood pressure, heart rate, and EKG were monitored. An Echocardiogram was performed by corn lab technician in four stages in quad fashion. At peak stress, four selected images were obtained and placed side by side with resting images for comparison. Echo Enhancing Agent Indication: Endocardial border delineation Agent(s) / Amount(s) Used: Optison 8 cc Stress Test Details Stress Test: Exercise stress testing was performed using a Levi protocol. HR Resting HR: 83 bpm Max Heart Rate (APMHR): 156 [place] [address] STRESS ECHOCARDIOGRAM Name: BALWINDER RAY Room: [facility]#: [id number] Admission: 06/26/20 Attend Phys: Home Choudhury MD Discharge: Date of : 55 Date of Service: 06/26/20 1457 Report #: [id number] Max HR Achieved: 143 bpm Target HR (85% APMHR): 132 bpm % of APMHR: 91 Recovery HR: 112 bpm HR response to stress: Normal HR response to stress BP Resting BP: 135/76 mmHg Max BP: 224/80 mmHg Recovery BP: 169/87 mmHg BP response to stress: Normal blood pressure response to stress. ECG Resting ECG: Sinus Rhythm, RBBB Stress ECG: Sinus tachycardia, RBBB ST Change: None Arrhythmia: None Recovery ECG: Sinus Rhythm, RBBB Recovery ST Change: None Recovery Arrhythmia: None Clinical Reason for Termination: Maximal effort, Dyspnea, fatigue Exercise duration: 4 min 34 sec Highest Stage Achieved: Stage 2: 2.5 mph at 12% grade. Exercise capacity: 6.15 METs The patient tolerated standard Levi protocol exercise without significant cardiac symptoms. Stress ECG Conclusion The baseline twelve-lead EKG shows sinus rhythm with right bundle branch block. There were no significant ST segment abnormalities. EKGs obtained during and post exercise show sinus rhythm and sinus tachycardia with right bundle branch block. There were no significant ST segment changes when compared to baseline. There were no significant stress-induced arrhythmias. Pre-Stress Echo The resting Echocardiogram showed normal left ventricular contractility with an estimated Ejection Fraction of about 55-60%. The resting echocardiogram demonstrated normal wall motion in all wall segments. Post-Stress Echo The stress Echocardiogram showed normal left ventricular contractility with an estimated Ejection Fraction of about 65-70%. Compared to rest, there were no stress[place] [address] STRESS ECHOCARDIOGRAM Name: BALWINDER RAY Room: [facility]#: [id number] Admission: 06/26/20 Attend Phys: Home Choudhury MD Discharge: Date of : 55 Date of Service: 06/26/201456 Report #: [id number] abnormalities. Conclusion Clinical Response: Non-ischemic Exercise Capacity: Below Average Stress ECG Response: Non-ischemic Stress Echo Images: Non-ischemic Other Information Technically limited study due to poor endocardial definition, Optison used. <ELECTRONICALLY SIGNED> By: Raj White MD, [facility] 06/26/201456 56 56 Raj White MD, FACC /INF
== END ==
LOC: M.CRD 10:43
PROVIDERS: ATTEND Internal Medicine Cardiovascular Disease
DX: I25.10 Atherosclerotic heart disease of native coronary artery without angina pectoris (principal)

== ENCOUNTER 2020-12-31 14:47 | Emergency (ER) | payer OTHER ==
[~2020-12-31] VITALS: Ht 182.9 cm; Wt 127.0 kg
[2020-12-31 15:32] LABS: ABSOLUTE EOSINOPHILS 0.1 thou/uL (0.0-0.7); ABSOLUTE LYMPHOCYTES 1.5 thou/uL (0.8-5.3); ABSOLUTE MONOCYTES 0.5 thou/uL (0.0-1.2); ABSOLUTE NEUTROPHILS 3.9 thou/uL (1.6-8.1); BASOPHILS 0.8 %; EOSINOPHILS 1.2 %; HEMATOCRIT 37.2 % (42.0-52.0); LYMPHOCYTES 25.2 %; MCH 31.3 pg (26.0-34.0); MCV 89.5 fL (80.0-100.0); MONOCYTES 8.8 %; MPV 6.9 fl. (7.2-11.1); NUCLEATED RBCS 0 /100WBC; PLATELET COUNT* 165 thou/uL (150-400); RBC 4.15 mil/uL (4.50-6.00); RDW-CV 13.7 % (10.5-14.5); WBC 6.1 thou/uL (4.0-11.0)
--- NOTE | 2020-12-31 15:39 | EKG ---
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1955 Requested By: Galo Braswell Order Number: [id number] MD: Home Choudhury Measurements Intervals [place] Rate: 107 P: 46 ME: 192 QRS: -18 QRSD: 114 T: -4 QT: 371 QTc: 495 Interpretive Statements Sinus rhythm Atrial premature complexes in trigeminey Incomplete right bundle branch block Inferior infarct, old Baseline wander in lead(s) III Compared to ECG 03/22/2019 18:45:48 Atrial premature complex(es) now present Myocardial infarct finding still present Electronically Signed On 12-31-2020 15:39:31 CDT by Home Choudhury [email or web address] <ELECTRONICALLY SIGNED> By: Home Choudhury MD, FAC 12/31/20 1539 1503 1503 Home Choudhury MD, FAC /EPI
[2020-12-31 15:42] LABS: URINE BILIRUBIN NEGATIVE (Negative); URINE BLOOD 1+ (Negative); URINE CLARITY CLEAR; URINE COLOR YELLOW; URINE GLUCOSE-RANDOM NEGATIVE (Negative); URINE KETONES NEGATIVE (Negative); URINE LEUKOCYTES NEGATIVE (Negative); URINE NITRITE NEGATIVE (Negative); URINE PROTEIN NEGATIVE (Negative); URINE SPECIFIC GRAVITY <= 1.005 (1.005-1.030); URINE UROBILINOGEN 0.2 E.U./dl (0.2-1.0)
[2020-12-31 15:44] LABS: BACTERIA 1-9 Few /HPF (None Seen); CASTS None Seen /LPF (None Seen); CRYSTALS None Seen /LPF (None Seen); SQUAMOUS 0-3 Few /LPF (0-3); URINE RBC 0-2 Rare /HPF (0-2); URINE WBC 0-5 Rare /HPF (0-5)
[2020-12-31 15:50] LABS: CREATININE 1.2 mg/dL (0.6-1.3); POTASSIUM 3.6 mmol/L (3.5-5.1)
[2020-12-31 16:04] LABS: ALBUMIN 4.3 g/dL (3.4-5.0); CK-MB MASS 1.5 ng/mL (<0.5-3.6); MAGNESIUM 1.6 mg/dL (1.8-2.4); TOTAL BILIRUBIN 0.6 mg/dL (<0.1-1.0); TOTAL PROTEIN 6.8 g/dL (6.4-8.2)
[2020-12-31 17:54] VITALS: BP 120/70
== END 2020-12-31 17:54 | disposition home or self-care (01) ==
LOC: M.ERS 14:47
PROVIDERS: Physician Assistant
DX: R06.02 Shortness of breath (principal); Z20.822 Contact with and (suspected) exposure to COVID-19; R11.0 Nausea; R61 Generalized hyperhidrosis; I25.2 Old myocardial infarction; F41.9 Anxiety disorder, unspecified; I48.0 Paroxysmal atrial fibrillation; I25.10 Atherosclerotic heart disease of native coronary artery without angina pectoris; Z95.5 Presence of coronary angioplasty implant and graft; Z98.890 Other specified postprocedural states; Z79.899 Other long term (current) drug therapy; Z79.82 Long term (current) use of aspirin